=== PATIENT | female | born 1960 | race Caucasian/White ===

== ENCOUNTER 2017-02-16 19:30 | Emergency (ER) | payer BC ==
[2017-02-16 19:59] VITALS: BP 135/64
[2017-02-16] MEDS ORDERED: Sodium Chloride 0.9% 5 ML Syringe FLUSH PRN (20:09)
[2017-02-16] MEDS ORDERED: Sodium Chloride 0.9% 1,000 ML IV SCH (20:15)
--- NOTE | 2017-02-16 20:18 | EDM.PDOC ---
ED HPI HEADACHE COMPLAINT - General Stated Complaint: DISORIENTATED Time Seen by Provider: 02/16/17 19:45 Source of Information: Reports: Patient History Limitations: Reports: No limitations - History of Present Illness INITIAL COMMENTS - FREE TEXT/NARRATIVE: PT STATES SHE DEVELOPED SEVERE MIGRAINE ABOUT 1630 AND TOOK ASA. BECAME CONFUSED DIZZY, AND FELT LIKE SHE WAS GOING TO PASS OUT. FAMILY WITNESSED EVENT AND SAID SHE WAS CONFUSED. WELCH HAS MOSTLY SUBSIDED. DENIES FALL, N/V/D, FEVER, NECK STIFFNESS, OR NEW MEDICATION. Symptom Onset Date: 02/16/17 Symptom Onset Time: 17:30 Timing/Duration: Reports: hour(s):, improving Location: Reports: generalized Severity: Reports: moderate Associated Symptoms: Reports: confusion, dizziness, vision changes Treatments CALL OR CONTACT CENTRE COACH: Reports: Aspirin - Related Data Allergies/ADRs: Allergies Allergy/AdvReac Type Severity Reaction Status Date / Time sumatriptan [From Imitrex] Allergy Shortness Verified 02/16/17 19:41 of Breath Home Meds: Home Meds Albuterol [Proair HFA] 2 puff INH Q4HR PRN 02/16/17 [History] Citalopram Hydrobromide [Citalopram HBr] 20 mg PO DAILY 02/16/17 [History] Diazepam [Diazepam] 10 mg PO DAILY PRN 02/16/17 [History] Furosemide [Furosemide] 20 mg PO DAILY 02/16/17 [History] Hydrocodone/Acetaminophen [Hydrocodon-Acetaminophen 5-325] 5 mg PO DAILY PRN 05/28 [History] Ibuprofen 600 mg PO Q6HR 02/16/17 [History] LORazepam 1 mg PO DAILY PRN 02/16/17 [History] Prednisone [IJD: predniSONE] 20 mg PO WITHBREAKFAST #5 tab 02/16/17 [Rx] Rizatriptan Benzoate [Maxalt] 5 mg PO ASDIRECTED #20 tablet 02/16/17 [Rx] oxyCODONE 5 mg PO DAILY PRN 02/16/17 [History] ED ROS GENERAL - Review of Systems Review Of Systems: ROS reveals no pertinent complaints other than HPI. Constitutional: Reports: no symptoms HEENT: Reports: No symptoms Respiratory: Reports: No Symptoms Cardiovascular: Reports: No symptoms Endocrine: Reports: no symptoms GI/Abdominal: Reports: No symptoms : Reports: no symptoms Musculoskeletal: Reports: no symptoms Skin: Reports: no symptoms Neurological: Reports: Confusion, Dizziness, Headache, Difficulty Walking Psychiatric: Reports: No symptoms Hematologic/Lymphatic: Reports: no symptoms Immunologic: Reports: no symptoms - Physical Exam Exam: See Below Exam Limited By: No limitations General Appearance: alert, WD/WN, no apparent distress Eye Exam: bilateral eye: normal inspection Ears: normal external exam, normal canal, normal TMs Nose: normal inspection, normal mucosa, no blood Throat/Mouth: Normal inspection, Normal oropharynx, Normal voice, No airway compromise Head Exam: atraumatic, normocephalic Neck: normal inspection, supple, non-tender, full range of motion Respiratory/Chest: no respiratory distress, lungs clear, normal breath sounds, no accessory muscle use, chest non-tender Cardiovascular: regular rate, rhythm, no murmur GI/Abdominal: normal bowel sounds, soft, non tender, no organomegaly, no distention, no abnormal bruit, no mass Neuro Exam (Abbreviated): alert, oriented, CN II-XII intact, normal cognition, normal gait, no motor/sensory deficits Back Exam: normal inspection. No: CVA tenderness (L), CVA tenderness (R) Extremities: normal inspection, non-tender, no pedal edema Psychiatric: normal affect, normal mood Skin Exam: Warm, Dry, Intact, Normal color, No rash EKG INTERPRETATION EKG Date: 02/16/17 Time: 20:25 Rhythm: NSR Rate (beats/min): 64 Rush: normal P-wave: present ST-T: normal Course - Vital Signs Last Recorded V/S: Last Vital Signs Temp 96.7 F 02/16/17 19:58 Pulse 66 02/16/17 19:58 Resp 18 02/16/17 19:58 BP 135/64 02/16/17 19:58 Pulse Ox 96 02/16/17 19:58 - Orders/Labs/Meds Orders: Active Orders 24 hr Category Date Time Status EKG Documentation Completion [RC] ASDIRECTED Care 02/16/17 20:10 Ordered Peripheral IV Care [RC] . DIRECTED Care 02/16/17 20:10 Ordered Chest 1V Frontal [CR] Stat Exams 02/16/17 20:09 Ordered Head wo Cont [CT] Stat Exams 02/16/17 20:09 Ordered CBC WITH AUTO DIFF [HEME] Stat Lab 02/16/17 20:09 Ordered COMPREHENSIVE METABOLIC PN,CMP [CHEM] Stat Lab 02/16/17 20:09 Ordered UA W/MICROSCOPIC [URIN] Stat Lab 02/16/17 20:09 Uncollected Sodium Chloride 0.9% @ 125 MLS/HR (1000ml) Med 02/16/17 20:15 Ordered Sodium Chloride 0.9% [Normal Saline] 1,000 ml IV ASDIRECTED Sodium Chloride 0.9% [Syrex Flush] Med 02/16/17 20:09 Ordered 5 ml FLUSH Q8HR PRN Peripheral IV Insertion Adult [OM.PC] Urgent Oth 02/16/17 20:09 Ordered EKG 12 Lead [EK] Stat Ther 02/16/17 20:09 Ordered Medication Orders Sodium Chloride (Normal Saline) 1,000 mls @ 125 mls/hr IV ASDIRECTED BERTA Sodium Chloride (Syrex Flush) 5 ml FLUSH Q8HR PRN PRN Reason: Keep Vein Open Meds: Medications Generic Name Dose Route Start Last Admin Trade Name Freq PRN Reason Stop Dose Admin Sodium Chloride 1,000 mls @ 125 mls/hr 02/16/17 20:15 Normal Saline IV ASDIRECTED BERTA Sodium Chloride 5 ml 02/16/17 20:09 Syrex Flush FLUSH Q8HR PRN Keep Vein Open - Radiology Interpretation Free Text/Narrative:: CXR NEGATIVE CT Results Date: 02/16/17 CT Results Time: 20:55 - Re-Assessments/Exams Free Text/Narrative Re-Assessment/Exam: 02/16/17 21:16 PT AFEBRILE, NONTOXIC APPEARING, VSS, WELCH RELIEVED, NO NEUROFOCAL DEFICITS NOTED , FAMILY AT BEDSIDE Departure - Departure Time of Disposition: 22:00 Disposition: Home, Self-Care 01 Condition: good Clinical Impression: Migraine Qualifiers: Migraine type: unspecified Status migrainosus presence: without status migrainosus Intractability: not intractable Qualified Code(s): G43.909 - Migraine, unspecified, not intractable, without status migrainosus Instructions: Migraine Headache, [id number] Additional Instructions: FOLLOW UP WITH DR REBOLLAR IN NEXT 3-5 DAYS. RETURN TO ER SOONER IS SYMPTOMS CONTINUE - My Orders Last 24 Hours: My Active Orders 02/16/17 20:09 Chest 1V Frontal [CR] Stat Head wo Cont [CT] Stat CBC WITH AUTO DIFF [HEME] Stat COMPREHENSIVE METABOLIC PN,CMP [CHEM] Stat UA W/MICROSCOPIC [URIN] Stat Sodium Chloride 0.9% [Syrex Flush] 5 ml FLUSH Q8HR PRN Peripheral IV Insertion Adult [OM.PC] Urgent EKG 12 Lead [EK] Stat 02/16/17 20:10 EKG Documentation Completion [RC] ASDIRECTED Peripheral IV Care [RC] . DIRECTED 02/16/17 20:15 Sodium Chloride 0.9% @ 125 MLS/HR (1000ml) Sodium Chloride 0.9% [Normal Saline] 1,000 ml IV ASDIRECTED - Assessment/Plan Last 24 Hours: My Active Orders 02/16/17 20:09 Chest 1V Frontal [CR] Stat Head wo Cont [CT] Stat CBC WITH AUTO DIFF [HEME] Stat COMPREHENSIVE METABOLIC PN,CMP [CHEM] Stat UA W/MICROSCOPIC [URIN] Stat Sodium Chloride 0.9% [Syrex Flush] 5 ml FLUSH Q8HR PRN Peripheral IV Insertion Adult [OM.PC] Urgent EKG 12 Lead [EK] Stat 02/16/17 20:10 EKG Documentation Completion [RC] ASDIRECTED Peripheral IV Care [RC] . DIRECTED 02/16/17 20:15 Sodium Chloride 0.9% @ 125 MLS/HR (1000ml) Sodium Chloride 0.9% [Normal Saline] 1,000 ml IV ASDIRECTED Assessment:: MIGRAINE WELCH Plan: F/U WITH PCP IN NEXT 3-5 DAYS
[2017-02-16] MEDS ORDERED: Metoclopramide 10 MG/2 ML SDV IVPUSH ONE (21:01)
[2017-02-16] MEDS ORDERED: diphenhydrAMINE 50 MG/ML SDV IVPUSH ONE (21:01)
[2017-02-16] MEDS ORDERED: Dexamethasone 4 MG/ML SDV IVPUSH ONE (21:01)
[2017-02-16 21:03] LABS: CHLORIDE,CL 90 mmol/L (98-115); SODIUM,NA 127 mmol/L (136-145)
[2017-02-16] MEDS ORDERED: Dexamethasone 4 MG/ML SDV ONE (21:41)
== END 2017-02-16 22:30 | disposition home or self-care (01) ==
LOC: KA.ED 19:30
DX: G43.909 Migraine, unspecified, not intractable, without status migrainosus (principal); Z79.899 Other long term (current) drug therapy; Z88.8 Allergy status to other drugs, medicaments and biological substances
CPT/HCPCS: 36415; 70450; 71010; 80053; 81001; 85025; 93005; 96361; 96374; 96375; 99284; J1100; J1200; J2765; J7030